=== PATIENT | female | born 1935 | race Caucasian/White ===

== ENCOUNTER 2016-09-06 02:28 | Emergency (ER) | payer OTHER ==
[~2016-09-06] VITALS: Ht 152.4 cm; Wt 74.8 kg
--- NOTE | 2016-09-06 03:03 | ED GI/GU/ABDOMINAL COMPLAINT ---
History of Present Illness General Chief Complaint: General Adult Stated Complaint: "JACKSON BEEN VOMITING" Source: patient Exam Limitations: no limitations Vital Signs & Intake/Output Vital Signs & Intake/Output Vital Signs Date Time Temp Pulse Resp B/P Pulse O2 O2 Flow FiO2 Ox Delivery Rate 09/06 0315 97 Room Air 09/06 0257 98.2 103 18 148/76 94 Room Air Allergies Coded Allergies: MDX - Erythromycin (UNKNOWN 09/06/16) MDX - Penicillin (UNKNOWN 09/06/16) Macrolide Antibiotics (UNKNOWN 09/06/16) Niacin Preparations (UNKNOWN 09/06/16) Thiazides (UNKNOWN 09/06/16) acetaminophen (From VICODIN) (UNKNOWN 09/06/16) adhesive tape (CONTACT DERMATITIS 09/06/16) azithromycin (From ZITHROMAX) (DIARRHEA 09/06/16) codeine (NAUSEA/VOMITTING 09/06/16) dexlansoprazole (From DEXILANT) (DIARRHEA 09/06/16) furosemide (From LASIX) (UNKNOWN 09/06/16) hydrochlorothiazide (UNKNOWN 09/06/16) hydrocodone (From VICODIN) (UNKNOWN 09/06/16) povidone-iodine (From BETADINE) (RASH 09/06/16) soap (From BETADINE) (RASH 09/06/16) tramadol (From ULTRAM) (ABDOMINAL PAIN 09/06/16) Reconcile Medications Clindamycin HCl 300 MG CAPSULE 1 CAP PO 4 TIMES/DAY bronchitis Ondansetron (Zofran Odt) 4 MG TAB.RAPDIS 1 TAB SL TID PRN nausea/vomiting Triage Nurses Notes Reviewed? yes ? n Is pt currently ? No Onset: Gradual Duration: hour(s): Timing: recent history Quality/Severity: cramping Location: generalized abdomen Radiation: no radiation Activities at Onset: none Prior Abdominal Problems: none Modifying Factors: Worsens With: vomiting. Associated Symptoms: abdominal pain, nausea/vomiting HPI: 81 yo woman h/o follicular lymphoma, Presents with vomiting since 23:45 yesterday. "It began all of a sudden." She notes that she has had at least 7-8 episodes of vomiting. The last was around 2 AM. She has not had any significant bowel movement since yesterday morning. She has no fever chills chest pain dyspnea. She states, "it feels like I have the bug." She shares that she also has "a bit of a cough," with small amount of phlegm. Past History Travel History Traveled to [place] past 21 day No Medical History Any Pertinent Medical History? see below for history Pneumonia Vaccine: 07/04/01 Influenza Vaccine: 04/03/09 Surgical History Surgical History: none Psychosocial History Who do you live with Spouse Services at Home None What is your primary language Malay Family History Hx Contributory? No Review of Systems Review of Systems Constitutional: Reports: no symptoms. EENTM: Reports: no symptoms. Respiratory: Reports: no symptoms. Cardiovascular: Reports: no symptoms. GI: Reports: no symptoms. Genitourinary: Reports: no symptoms. Musculoskeletal: Reports: no symptoms. Skin: Reports: no symptoms. Neurological/Psychological: Reports: no symptoms. Hematologic/Endocrine: Reports: no symptoms. Immunologic/Allergic: Reports: no symptoms. All Other Systems: Reviewed and Negative Physical Exam Physical Exam General Appearance: well developed/nourished, mild distress Head: atraumatic, normal appearance Eyes: Bilateral: normal appearance. Ears, Nose, Throat, Mouth: hearing grossly normal Neck: normal inspection, supple, full range of motion, normal alignment Respiratory: normal breath sounds, chest non-tender, no respiratory distress, quiet respiration, lungs clear Cardiovascular: regular rate/rhythm Gastrointestinal: normal bowel sounds, soft, non-tender, moderate distention. decreased bowel sounds. mild midepigastric tenderness without rebound or guarding. Back: normal inspection, normal range of motion Extremities: normal range of motion Neurologic/Psych: no motor/sensory deficits, awake, alert, oriented x 3 Core Measures ACS in differential dx? No Severe Sepsis Present: No Septic Shock Present: No Progress Differential Diagnosis: SPO versus gastroenteritis versus diverticulitis versus other Plan of Care: Orders Procedure Date/time Status Add-on Test (ER Only) 09/06 0303 Active LACTIC ACID 09/06 0300 Complete TROPONIN LEVEL 09/06 023 Complete LIPASE 09/06 023 Complete HEPATIC FUNCTION PANEL 09/06 023 Complete CBC WITHOUT DIFFERENTIAL 09/06 023 Complete BASIC METABOLIC PANEL 09/06 023 Complete AMYLASE 09/06 023 Complete EKG 09/06 023 Active Laboratory Tests 09/06/16 0300: Anion Gap 13, Estimated GFR > 60, BUN/Creatinine Ratio 23.3, Glucose 155 H, Lactic Acid 1.3, Calcium 9.8, Total Bilirubin 1.3, Direct Bilirubin 0.3, AST 25, ALT 25, Alkaline Phosphatase 66, Troponin I < 0.01, Total Protein 6.9, Albumin 4.4, Amylase 118 H, Lipase 99, CBC w Diff NO MAN DIFF REQ, RBC 4.50, MCV 85.1, MCH 28.5, RDW 15.9 H, MPV 6.3 L, Gran % 82.2 H, Lymphocytes % 13.2 L, Monocytes % 3.6, Eosinophils % 0.8, Basophils % 0.2, Absolute Granulocytes 3.4, Absolute Lymphocytes 0.5 L, Absolute Monocytes 0.2, Absolute Eosinophils 0, Absolute Basophils 0, PUBS MCHC 33.5 09/06/16 0230: Urine Color Cancelled, Urine Clarity Cancelled, Urine pH Cancelled, Ur Specific Dwarf Cancelled, Urine Protein Cancelled, Urine Ketones Cancelled, Urine Nitrite Cancelled, Urine Bilirubin Cancelled, Urine Urobilinogen Cancelled, Ur Leukocyte Esterase Cancelled, Ur Microscopic Cancelled, Urine Hemoglobin Cancelled, Urine Glucose Cancelled Initial ED EKG: normal axis, normal intervals, normal p-waves, normal QRS complex, normal sinus rhythm Departure Departure Disposition: HOME OR SELF CARE Condition: Stable Clinical Impression Primary Impression: Gastroenteritis Secondary Impressions: Bronchitis Referrals: ALONDRA LICEA,HIPOLITO Collado (PCP/Family) Departure Forms: Customer Survey General Discharge Information Prescriptions: Current Visit Scripts Clindamycin HCl 1 CAP PO 4 TIMES/DAY #28 CAP Ondansetron (Zofran Odt) 1 TAB SL TID PRN nausea/vomiting #10 TAB Comments 09/06/16, 4:39am... ct scan consistent with gastroenteritis with lymphadenopathy likely due to her known follicular lymphoma. She feels well after iv fluids. Ct scan also shows lower lung ground glass opacities.... while this may represent infection vs atelectasis, I sent in rx for clindamycin (pt is pcn allergic) to take if cough/phlegm progresses.
[2016-09-06 03:15] LABS: ABSOLUTE BASOPHIL COUNT 0 /CUMM (0.0-0.2); ABSOLUTE EOSINOPHIL COUNT 0 /CUMM (0.0-0.7); ABSOLUTE GRANULOCYTE CT 3.4 /CUMM (1.4-6.5); ABSOLUTE LYMPH COUNT 0.5 /CUMM (1.2-3.4); ABSOLUTE MONOCYTE COUNT 0.2 /CUMM (0.10-0.60); BASOPHIL % 0.2 % (0.0-2.0); EOSINOPHIL % 0.8 % (0-5); HEMATOCRIT 38.3 % (37-47); MEAN CORPUSCULAR HGB 28.5 PG (27.0-31.0); MEAN CORPUSCULAR HGB CONC 33.5 G/DL (33.0-37.0); MEAN CORPUSCULAR VOLUME 85.1 FL (81.0-99.0); MEAN PLATELET VOLUME 6.3 FL (7.4-10.4); PLATELET COUNT 180 /CUMM (130-400); RBC DISTRIBUTION WIDTH 15.9 % (11.5-14.5); WHITE BLOOD CELL COUNT 4.2 /CUMM (4.8-10.8)
[2016-09-06 03:33] LABS: GRANULOCYTE % 82.2 % (42.2-75.2)
--- NOTE | 2016-09-06 04:16 | CT SCAN REPORT ---
EXAMINATION: CT ABDOMEN AND PELVIS WITHOUT CONTRAST CLINICAL INFORMATION: Vomiting, question small bowel obstruction COMPARISON: 04/13/2006 TECHNIQUE: Multidetector volumetric imaging was performed from the superior aspect of the liver through the pubic symphysis. Sagittal and coronal reformatted images were obtained on the technologist's workstation. DLP: 1045.78 mGy-cm FINDINGS: LUNG BASES: There is partial visualization of predominantly groundglass consolidation in the right middle lobe. LIVER, GALLBLADDER, AND BILIARY TREE: The liver is normal in size, shape, and attenuation. No focal hepatic lesion or biliary ductal dilatation is present. The gallbladder is unremarkable with no evidence of radiopaque gallstones, gallbladder wall thickening, or obvious pericholecystic inflammatory changes. PANCREAS: Unremarkable. SPLEEN: Enlarged, measuring approximately 18 cm in craniocaudal dimension. ADRENAL GLANDS: Unremarkable. KIDNEYS AND URETERS: The kidneys are normal in size, shape, and attenuation. No hydronephrosis, hydroureter, or calculi seen. No perinephric stranding. BLADDER: Unremarkable. GASTROINTESTINAL TRACT: No significant dilation of bowel loops is seen to suggest obstruction. There is mild diverticulosis of the sigmoid colon. No significant colonic wall thickening is seen, though assessment in some regions is limited due to luminal decompression. There is stranding adjacent to the duodenum, of uncertain significance. The appendix appears collapsed. No free fluid or free air is seen. ABDOMINAL WALL: No significant hernia is appreciated. LYMPH NODES: Multiple lymph nodes are present in the retroperitoneum, several of which are enlarged measuring up to approximately 1.3 cm in short axis dimension. Numerous subcentimeter lymph nodes are also present in the mesentery of the central abdomen with surrounding stranding resulting in a "scooter mesentery" appearance. VASCULAR: There is atherosclerotic calcification along the aorta. PELVIC VISCERA: Unremarkable. OSSEOUS STRUCTURES: Scattered degenerative changes are noted in the spine. There is grade 1 anterolisthesis of L4 on L5 with disc space narrowing, suspected to be chronic/degenerative in nature. IMPRESSION: 1. Numerous subcentimeter nodes in the mesentery with surrounding mesenteric stranding, resulting in a "scooter mesentery" appearance. Several enlarged retroperitoneal lymph nodes are also present. While the "scooter mesentery" appearance can be seen with sclerosing mesenteritis, the enlarged retroperitoneal lymph nodes would be atypical for this diagnosis. Therefore, these findings could alternatively be malignant in nature, such as seen with lymphoma. 2. Splenomegaly. 3. Partial visualization of pulmonary groundglass opacity in the right middle lobe, suspicious for an inflammatory/infectious etiology. 4. No evidence of small bowel obstruction.
[2016-09-06] MEDS ORDERED: CLINDAMYCIN HC300 M1 PO (04:31)
[2016-09-06] MEDS ORDERED: ZOFRAN ODT4 M1 SL (04:31)
[2016-09-06 04:40] VITALS: BP 136/74
== END 2016-09-06 04:41 ==
LOC: ERH 02:28
PROVIDERS: Pediatrics
DX: K52.9 Noninfective gastroenteritis and colitis, unspecified (principal); J40 Bronchitis, not specified as acute or chronic
CPT/HCPCS: 74176; 93005; 93010; 96361; 96374; J2405